=== PATIENT | female | born 1985 | race Asian ===

== ENCOUNTER 2017-10-13 08:35 | Inpatient (IN) | payer OTHER ==
[~2017-10-13] VITALS: Ht 157.5 cm; Wt 108.9 kg
[~2017-10-13 08:35] MED LIST: POLYTRIM EYE DR10 ML OPH
[2017-10-13] MEDS ORDERED: PRENATAL PLUS1 EAC2 PO (09:18)
[2017-10-13] MEDS ORDERED: ASPIRIN81 M4 PO (09:19)
[2017-10-13 09:36] LABS: ABSOLUTE BASOPHIL COUNT 0 /CUMM (0.0-0.2); ABSOLUTE EOSINOPHIL COUNT 0.1 /CUMM (0.0-0.7); ABSOLUTE GRANULOCYTE CT 8.3 /CUMM (1.4-6.5); ABSOLUTE LYMPH COUNT 3.8 /CUMM (1.2-3.4); ABSOLUTE MONOCYTE COUNT 0.5 /CUMM (0.10-0.60); BASOPHIL % 0.3 % (0.0-2.0); EOSINOPHIL % 0.7 % (0-5); GRANULOCYTE % 64.9 % (42.2-75.2); HEMATOCRIT 37.9 % (37-47); MEAN CORPUSCULAR HGB 26.1 PG (27.0-31.0); MEAN CORPUSCULAR HGB CONC 33.6 G/DL (33.0-37.0); MEAN CORPUSCULAR VOLUME 77.6 FL (81.0-99.0); MEAN PLATELET VOLUME 8.4 FL (7.4-10.4); PLATELET COUNT 304 /CUMM (130-400); RBC DISTRIBUTION WIDTH 16.3 % (11.5-14.5); RED BLOOD CELL CT 4.88 /CUMM (4.20-5.40); WHITE BLOOD CELL COUNT 12.8 /CUMM (4.8-10.8)
[2017-10-13] MEDS ORDERED: NOVOLIN R100 UNIT/1 SC (09:40)
[2017-10-13] MEDS ORDERED: HUMALOG100 UNIT/1 SC ×2 (09:43→09:46)
[2017-10-13] MEDS ORDERED: HUMULIN N100 UNIT/2 SC ×2 (09:49→09:51)
--- NOTE | 2017-10-13 11:17 | History & Physical ---
General Information and HPI MD Statement: I have seen and personally examined NATACHA BALES and documented this H&P. The patient is a 32 year old female at [] weeks and [] days gestation who presented with a chief complaint of IDDM with patient is very compliant. She is here for an induction secondary to estimated weight of 8 lbs. 7 oz. with polyhydramnios 19. Patient is highly motivated for vaginal delivery her last vaginal delivery 6 lbs. 7 oz. patient is aware of the risks of shoulder dystocia with gestational diabetes and large for gestational age and short stature. Despite that patient would like a trial of labor and we have discussed Pitocin epidural. []. History of Present Illness: 31-year-old 3 para 1011 at 38 weeks gestation and 6/ for induction secondary macrosomia insulin-dependent diabetes positive group B strep inducible cervix. Allergies/Medications Allergies: Coded Allergies: Beef Containing Products (itchy neck 10/13/17) Uncoded Allergies: avacado (itchy tongue 10/13/17) Home Med list Aspirin (Aspirin*) 81 MG TAB.CHEW 1 TAB PO DAILY diabetes (Reported) Insulin Lispro (Humalog) 100 UNIT/ML CARTRIDGE 17 UNITS SC 1/2H BEFOR/ BREAKFAST diabetes (Reported) Insulin Lispro (Humalog) 100 UNIT/ML CARTRIDGE 19 UNITS SC 1/2 HR AC diabetes (Reported) Insulin NPH Human Isophane (Humulin N Kwikpen) 100 UNIT/ML (3 ML) INSULN.PEN 12 UNITS SC DAILY diabetes (Reported) Q AM Insulin NPH Human Isophane (Humulin N Kwikpen) 100 UNIT/ML (3 ML) INSULN.PEN 20 UNITS SC DAILY diabetes (Reported) Pnv With Ca,No.72/Iron,Carb/FA ( Plus Iron Tablet) 29 MG IRON-1 MG TABLET 1 TAB PO DAILY (Reported) Past History stable cleaner History : 3 Para: 1 Last Menstrual Period: 01/13/17 Past stable cleaner History: top Medical History Neurological: NONE EENT: NONE Cardiovascular: NONE Respiratory: NONE Gastrointestinal: NONE Hepatic: NONE Renal: NONE Musculoskeletal: NONE Psychiatric: NONE Endocrine: NONE Surgical History Pertinent Surgical History: none Past Family/Social History Psychosocial History Smoking Status: Never Smoked Review of Systems Review of Systems: As per HPI negative Exam & Diagnostic Data Last 24 Hrs of Vital Signs/I&O Intake & Output 10/13 1600 10/13 0800 10/13 0000 Intake Total Output Total Balance Patient 240 lb Weight Obstetric Exam Wgt Gained During : 8 lbs Pelvimetry: tested to 6/7 Dilation (cm): -3 Effacement (%): 80 Station: 0 Membranes: intact Fluid: unknown Fundal Height (cm): 39 Multiple Gestation? No Contractions: q8 minutes Patient for Induction? Yes Blanco Score Blanco Score Response Value Cervix Position: mid-position 1 Cervix Consistency: soft 2 Cervix Effacement: >80% 3 Cervix Dilation: 3-4 cm 2 Total 8 Physical Exam: Obese female with glasses HEENT anicteric Lungs clear Abdomen obese gravid estimated weight 3900 g Extremities negative edema Labs Blood Type & Rh: A positive Antibody Screen: Negative Hct/Hgb & Platelets #1: 428 Hct/Hgb & Platelets #2: 419 Rubella: i VDRL #1: Nonreactive VDRL #2: Nonreactive HbsAg: Negative HIV #1: Negative HIV #2 Negative negative 1 Hr P Group B Strep: Positive Initial Ultrasound: Negative Anatomy Ultrasound: Negative Genetic Testing: Negative Assessment/Plan Assessment/Plan: assess term gdm macrosomic plan careful obsevation for with gentle pitocin and arom after ampicillin As Ranked By This Provider Problem List: 1. Core Measures Venous Thromboembolism VTE Risk Factors / No Mechanical VTE Prophylaxis d/t N/A MechProphylax Ordered No VTE Pharm Prophylaxis d/t NA PharmProphylax ordered
--- NOTE | 2017-10-13 18:10 | Labor & Delivery Summary ---
Delivery Summary Vaginal Delivery: Vaginal: vertex Episiotomy/Lacerations: Type: 2ND DEGREE WITH SULCUS TEAR Placenta: Placenta: spontanteous, normal, 3 vessel Anesthesia: block Additional Comments: WITHOUT MECONIUM VIABLE MALE . PLACENTA BY CCT.2ND DEGREE SULCUS TEARS REPAIRED IN LAYERS . B POSITIVE. RECTUM AND CERVIX FREE OF SUTURES.
[2017-10-13 18:17] VITALS: BP 125/74
[2017-10-14 06:38] LABS: ABSOLUTE BASOPHIL COUNT 0 /CUMM (0.0-0.2); GRANULOCYTE % 71.4 % (42.2-75.2)
[2017-10-14 06:48] LABS: ABSOLUTE EOSINOPHIL COUNT 0.1 /CUMM (0.0-0.7); ABSOLUTE GRANULOCYTE CT 12.1 /CUMM (1.4-6.5); ABSOLUTE MONOCYTE COUNT 0.7 /CUMM (0.10-0.60); BASOPHIL % 0.1 % (0.0-2.0); EOSINOPHIL % 0.4 % (0-5); MEAN CORPUSCULAR HGB CONC 33.2 G/DL (33.0-37.0); MEAN CORPUSCULAR VOLUME 78.5 FL (81.0-99.0); MEAN PLATELET VOLUME 8.3 FL (7.4-10.4); PLATELET COUNT 257 /CUMM (130-400); RBC DISTRIBUTION WIDTH 16.3 % (11.5-14.5); WHITE BLOOD CELL COUNT 16.9 /CUMM (4.8-10.8)
[2017-10-14 06:51] LABS: RED BLOOD CELL CT 3.49 /CUMM (4.20-5.40)
[2017-10-14 06:53] LABS: HEMATOCRIT 27.4 % (37-47)
[2017-10-14 12:56] LABS: ABSOLUTE BASOPHIL COUNT 0.1 /CUMM (0.0-0.2); ABSOLUTE EOSINOPHIL COUNT 0.1 /CUMM (0.0-0.7); ABSOLUTE GRANULOCYTE CT 11.2 /CUMM (1.4-6.5); ABSOLUTE LYMPH COUNT 3.7 /CUMM (1.2-3.4); ABSOLUTE MONOCYTE COUNT 0.6 /CUMM (0.10-0.60); BASOPHIL % 0.7 % (0.0-2.0); EOSINOPHIL % 0.4 % (0-5); GRANULOCYTE % 71.5 % (42.2-75.2); HEMATOCRIT 27.6 % (37-47); MEAN CORPUSCULAR HGB CONC 33.2 G/DL (33.0-37.0); MEAN CORPUSCULAR VOLUME 78.2 FL (81.0-99.0); MEAN PLATELET VOLUME 7.7 FL (7.4-10.4); PLATELET COUNT 276 /CUMM (130-400); RBC DISTRIBUTION WIDTH 16.1 % (11.5-14.5); RED BLOOD CELL CT 3.53 /CUMM (4.20-5.40); WHITE BLOOD CELL COUNT 15.7 /CUMM (4.8-10.8)
--- NOTE | 2017-10-14 15:26 | PN- Post Delivery/GYN ---
Subjective Subjective: C/O CRAMPS Objective Last 24 Hrs of Vital Signs/I&O Vital Signs Date Time Temp Pulse Resp B/P B/P Pulse O2 O2 Flow FiO2 Mean Ox Delivery Rate 10/13 1816 125/74 Physical Exam: PE OBESE FEMALE ABD SOFT NT FUNDUS FIRM NT EXT -EDEMA -HOMANS LABS H/H 05/21 Assessment/Plan Assessment/Plan ASSESS S/P ANEMIA PLAN IRON D/C HOME
[2017-10-14] MEDS ORDERED: PERCOCET 5-3251 EACH PO (15:28)
[2017-10-14] MEDS ORDERED: IBUPROFEN800 M1 PO (15:28)
[2017-10-15] MEDS ORDERED: DOCUSATE SODIU100 M3 PO (08:20)
== END 2017-10-15 10:07 | DRG 560 ==
LOC: GNO 08:35
PROVIDERS: Specialist
PROC: 0KQM0ZZ Repair Perineum Muscle, Open Approach (ICD-10-PCS; principal; 2017-10-13)
PROC: 3E033VJ Introduction of Other Hormone into Peripheral Vein, Percutaneous Approach (ICD-10-PCS; principal; 2017-10-13)
PROC: 10907ZC Drainage of Amniotic Fluid, Therapeutic from Products of Conception, Via Natural or Artificial Opening (ICD-10-PCS; principal; 2017-10-13)
PROC: 10E0XZZ Delivery of Products of Conception, External Approach (ICD-10-PCS; principal; 2017-10-13)
DX: O24.424 Gestational diabetes mellitus in childbirth, insulin controlled (principal); Z3A.38 38 weeks gestation of pregnancy; Z37.0 Single live birth; O70.1 Second degree perineal laceration during delivery; O99.824 Streptococcus B carrier state complicating childbirth; O99.02 Anemia complicating childbirth; O36.63X0 Maternal care for excessive fetal growth, third trimester, not applicable or unspecified; O40.3XX0 Polyhydramnios, third trimester, not applicable or unspecified
CPT/HCPCS: GNOS; 36415; 81001; 87086; J2210; J7120